=== PATIENT | male | born 1960 | race Caucasian/White ===

== ENCOUNTER 2019-12-01 11:03 | Emergency (ER) | payer OTHER ==
[~2019-12-01] VITALS: Ht 177.8 cm; Wt 86.2 kg
[~2019-12-01 11:03] MED LIST: AVAPRO150 MG; CARDURA1 MG; COREG CR10 MG; NEORAL100 MG; OMEPRAZOLE20 MG; RANITIDINE HCL150 MG; SIMVASTATIN80 MG; [UNRECOGNIZED DRUG - OTHER]
[2019-12-01] MEDS ORDERED: PEPCID AC20 MG (11:27)
[2019-12-01] MEDS ORDERED: CARVEDILOL3.125 MG (11:27)
[2019-12-01] MEDS ORDERED: PRAVASTATIN SOD20 MG (11:27)
== END 2019-12-01 13:21 | disposition home or self-care (01) ==
LOC: ER 11:03
DX: J35.01 Chronic tonsillitis (principal)